=== PATIENT | female | born 1980 | race Caucasian/White ===

== ENCOUNTER 2016-09-25 00:48 | Emergency (ER) | payer SELFPAY ==
[~2016-09-25] VITALS: Ht 162.6 cm; Wt 59.0 kg
[2016-09-25] MEDS ORDERED: KETOROLAC 60MG/2ML VIAL IM ONE (02:15)
[2016-09-25] MEDS ORDERED: MORPHINE SULFATE 10 MG/ML CPJ IM ONE (02:45)
[2016-09-25] MEDS ORDERED: ONDANSETRON HCL 4MG/2ML VIAL IM ONE (02:45)
[2016-09-25] MEDS ORDERED: MIDAZOLAM HCL 2 MG/2 ML VIAL IV ONE ×2 (04:45→05:45)
[2016-09-25] MEDS ORDERED: ONDANSETRON HCL 4MG/2ML VIAL IV ONE (04:45)
[2016-09-25] MEDS ORDERED: KETAMINE HCL 50 MG/ML 10ML IV ONE ×2 (04:45→05:45)
[2016-09-25] MEDS ORDERED: SODIUM CHLORIDE 0.9% 1,000 ML IV ONE (04:45)
[2016-09-25 06:30] VITALS: BP 125/72
== END 2016-09-25 08:15 | disposition home or self-care (01) ==
LOC: ER 00:58
DX: M23.91 Unspecified internal derangement of right knee (principal)
CPT/HCPCS: 73560; 73562; 96361; 96372; 96374; 96375; 99285; J1885; J2250; J2270; J2405; J3490; J7030; L1830; Z7610